=== PATIENT | male | born 1985 | race African-American/Black ===

== ENCOUNTER 2020-02-28 09:54 | Emergency (ER) | payer MEDICAID, OTHER ==
[~2020-02-28] VITALS: Ht 172.7 cm; Wt 73.0 kg
[2020-02-28 10:05] VITALS: BP 128/74
[2020-02-28] MEDS ORDERED: CEFTRIAXONE SODIUM 250 MG/VIAL IM ONE (11:00)
[2020-02-28] MEDS ORDERED: LIDOCAINE HCL 1% 20ML VIAL (Pyxis) INJ INFIL ONE (11:00)
[2020-02-28] MEDS ORDERED: AZITHROMYCIN 500 MG TABLET PO ONE (11:00)
== END 2020-02-28 11:25 | disposition home or self-care (01) ==
LOC: ER 09:54
DX: A64 Unspecified sexually transmitted disease (principal)
CPT/HCPCS: 96372; 99284; J0696; J3490; 87491; 87591; 99283